=== PATIENT | male | born 1960 ===

== ENCOUNTER 2021-10-28 04:06 | Day surgery (SDC) | payer BC, OTHER ==
[2021-10-28] MEDS ORDERED: ONDANSETRON 4 MG/2 ML VIAL ONE ×2 (09:02→10:33)
[2021-10-28] MEDS ORDERED: PROPOFOL 20 ML ONE (09:02)
[2021-10-28] MEDS ORDERED: LIDOCAINE 1%/EPI 1:100000 (20 ML MULTI DOSE VIAL) ONE (09:06)
[2021-10-28] MEDS ORDERED: BUPIVACAINE HCL/PF 0.5% (5MG/ML) 10 ML VIAL ONE (09:06)
[2021-10-28] MEDS ORDERED: LIDOCAINE 1%/EPI 1:100000 (20 ML MULTI DOSE VIAL) IJ ONE ×2 (09:44→10:33)
[2021-10-28] MEDS ORDERED: BUPIVACAINE HCL/PF 0.5% (5MG/ML) 10 ML VIAL IJ ONE ×2 (09:44→10:35)
[2021-10-28] MEDS ORDERED: MIDAZOLAM HCL 2 MG/2 ML SINGLE DOSE VIAL ONE (10:19)
[2021-10-28] MEDS ORDERED: KETOROLAC TROMETHAMINE 30 MG/1 ML VIAL ONE ×2 (10:26→10:33)
[2021-10-28] MEDS ORDERED: ceFAZolin SODIUM 1 GM VIAL IVPB ONE (10:28)
[2021-10-28] MEDS ORDERED: ceFAZolin SODIUM 1 GM VIAL ONE ×2 (10:28)
[2021-10-28] MEDS ORDERED: ONDANSETRON 4 MG/2 ML VIAL IVPUSH PRN (11:46)
[2021-10-28] MEDS ORDERED: oxyCODONE HCL 5 MG TABLET PO PRN (11:46)
[2021-10-28 11:53] VITALS: BMI 32.7
[2021-10-28] MEDS ORDERED: LACTATED RINGERS SOLUTION 1,000 ML IV SCH (12:00)
[2021-10-28 12:37] VITALS: TEMP 98.2
[2021-10-28 14:19] VITALS: BP 120/70; PULSE 70; RESP 18
== END 2021-10-28 13:15 | disposition home or self-care (01) ==
LOC: JASU-SURG 04:06
PROVIDERS: ATTEND Orthopaedic Surgery
PROC: 0SBC4ZZ Excision of Right Knee Joint, Percutaneous Endoscopic Approach (ICD-10-PCS; principal; 2021-10-28 09:30)
DX: M23.331 Other meniscus derangements, other medial meniscus, right knee (principal)
CPT/HCPCS: 94760